=== PATIENT | female | born 1980 | race African-American/Black ===

== ENCOUNTER 2018-06-09 11:52 | Emergency (ER) | payer SELFPAY ==
[~2018-06-09] VITALS: Ht 170.2 cm; Wt 122.5 kg
--- OUTSIDE RECORDS SUMMARY | 2018-06-09 11:54 | XMS REPORT ---
Author Author [facility] Address Unknown Phone Unavailable Care Team Providers [employer] Child Care Attendant Name Role Phone Unavailable Unavailable Payers Payer Name Policy Type Policy Number Effective Date Expiration Date Problems This patient has no known problems. Allergies, Adverse Reactions, Alerts Allergy Name Allergy Type Status Severity Reaction(s) Onset Date Inactive Date Treating Clinician Comments No Known Allergies DA Active U 2018-06-09 00:00:00 iodine DA Active SV 2018-06-09 00:00:00 Medications This patient has no known medications.
[2018-06-09] MEDS ORDERED: ENOXAPARIN SOD INJ 60 MG/0.6 ML SYR SC STA (12:07)
== END 2018-06-09 13:22 | disposition left against medical advice (07) ==
LOC: ER 11:52
DX: R07.89 Other chest pain (principal); Z86.718 Personal history of other venous thrombosis and embolism
CPT/HCPCS: 93005; 99282